=== PATIENT | female | born 1985 | race African-American/Black ===

== ENCOUNTER 2016-10-09 16:51 | Emergency (ER) | payer MEDICAID ==
[~2016-10-09] VITALS: Ht 246.4 cm; Wt 76.9 kg
[2016-10-09 17:16] VITALS: BP 105/61
--- NOTE | 2016-10-09 18:48 | NUR ---
PATIENT PRESENTS TO ED WITH C/O NASAL PAIN, SINUS PAIN, FOREHEAD PAIN WITH A PRODUCTIVE COUGH , YELLOW PHLEGM X 3 DAYS DENIES N/V/D; SKIN IS PINK/WARM/DRY; AAOX4 WITH EVEN AND STEADY GAIT; LUNGS CLEAR BL; HR EVEN AND REGULAR; PT DENIES ANY FEVER, CP, PATIENT STATES PAIN OF 08 AT THIS TIME; PATIENT POSITIONED FOR COMFORT; HOB ELEVATED; BEDRAILS UP X2; BED DOWN. ER MD MADE AWARE OF PT STATUS.PER PT HER WHOLE BODY HURT,NOTED WITH ON AND OFF COUGHING,PT AAO
--- NOTE | 2016-10-09 18:55 | NUR ---
PT REFUSED COOLING MEASURES AT THIS TIME, CLAIMED IM ALREADY COLD, WILL INFORMED LATEST TEMP.
--- NOTE | 2016-10-09 19:10 | NUR ---
DR. GARRETT AT BEDSIDE
--- NOTE | 2016-10-09 19:13 | NUR ---
Pt report given to PIN. Transfer of care at this time.
--- NOTE | 2016-10-09 19:18 | NUR ---
GOT REPORT FROM MESSI ROCHA. PT. RESTING IN BED, NO S/SX OF DISTRESS.
[2016-10-09] MEDS ORDERED: ACETAMIN/CODEINE 120/12MG-5ML 5 ML UDC PO ONE (19:20)
[2016-10-09] MEDS ORDERED: KETOROLAC 30 MG/ML VIAL IM ONE (19:20)
[2016-10-09] MEDS ORDERED: ALBUTEROL SULFATE/IPRATROPIU 3 ML SOL IH ONE (19:20)
[2016-10-09 20:12] VITALS: BP 117/68
--- NOTE | 2016-10-09 20:12 | NUR ---
Patient discharged with v/s stable. Written and verbal after care instructions given and explained. Patient alert, oriented and verbalized understanding of instructions. Ambulatory with steady gait. All questions addressed prior to discharge. ID band removed. Patient advised to follow up with PMD. Rx ofAZITROMYCIN 500 MG, NAPROSYN 500 MG, GAUAIATUSSIN AC 100/10 MG/5L, ALBUTEROL 90 MCG/ACTUATION given. Patient educated on indication of medication including possible reaction and side effects. Opportunity to ask questions provided and answered.
== END 2016-10-09 20:12 | disposition home or self-care (01) ==
LOC: MED 16:51
DX: J20.9 Acute bronchitis, unspecified (principal); M41.9 Scoliosis, unspecified; F12.10 Cannabis abuse, uncomplicated
CPT/HCPCS: 71010; 94640; 96372; 99283; J1885; J7620; Q0092